=== PATIENT | male | born 1975 | race Asian ===

== ENCOUNTER 2017-03-05 13:02 | Emergency (ER) | payer MEDICAID, OTHER ==
[~2017-03-05] VITALS: Ht 180.3 cm; Wt 100.0 kg
[~2017-03-05 13:02] MED LIST: BENZ1TAB10 PO; HALOD100I IM
[2017-03-05 13:32] LABS: BASOPHILS # (AUTO) 0.11 K/uL (0.00-0.20); EOSINOPHILS # (AUTO) 0.34 K/uL (0.00-0.70); HEMATOCRIT 48.6 % (41-53); HEMOGLOBIN 16.2 g/dL (13.5-17.5); LYMPHOCYTES # (AUTO) 2.8 K/uL (1.0-4.8); LYMPHOCYTES % (AUTO) 25.6 % (22.0-44.0); MEAN CORPUSCULAR HGB CONC 33.4 G/dL (31.0-37.0); MEAN CORPUSCULAR VOLUME 93 fL (80-100); MONOCYTES # (AUTO) 0.6 K/uL (0.1-1.0); MONOCYTES % (AUTO) 5.5 % (2.0-9.0); NEUTROPHILS # (AUTO) 7.2 K/uL (1.8-7.7); NEUTROPHILS % (AUTO) 64.8 % (40.0-70.0); PLATELET COUNT (AUTO) 426 K/uL (150-450); RED BLOOD CELL COUNT(AUTO) 5.23 MIL/uL (4.50-5.90); RED CELL DISTRIBUTION WIDTH 12.9 % (11.5-14.5); WHITE BLOOD COUNT (AUTO) 11.1 K/uL (4.5-11.0)
[2017-03-05 13:52] LABS: ANION GAP 9 mmol/L (8-16); CALCIUM, TOTAL 8.6 mg/dL (8.8-10.5); CARBON DIOXIDE 26 mmol/L (22-29); CHLORIDE 106 mmol/L (98-107); CREATININE 1.09 mg/dL (0.60-1.30); GLOMERULAR FILTR. RATE CALC > 60 mL/min (>60); SODIUM SERUM 141 mmol/L (136-145); UREA NITROGEN, BLOOD 11 mg/dL (7-18)
[2017-03-05 13:54] LABS: B-TYPE NATRIURETIC PEPTIDE < 5 pg/mL (0-100)
[2017-03-05 13:56] LABS: ALANINE AMINOTRANSFERASE 18 U/L (12-78); ALBUMIN 3.7 g/dL (3.4-5.0); ASPARTATE AMINOTRANSFERASE 12 U/L (15-37); BILIRUBIN,TOTAL 0.3 mg/dL (0.1-1.0); TOTAL PROTEIN, SERUM 7.5 g/dL (6.4-8.2)
[2017-03-05] MEDS ORDERED: ALBUTEROL SULFATE HFA 90 MCG/PUFF 8 GM INHALER IH ONE (15:15)
[2017-03-05 16:03] VITALS: BP 127/61
== END 2017-03-05 16:03 | disposition home or self-care (01) ==
LOC: EMS 13:03
DX: J45.901 Unspecified asthma with (acute) exacerbation (principal); F17.210 Nicotine dependence, cigarettes, uncomplicated
CPT/HCPCS: 93005; 94640; 99285; 99406; J3535

== ENCOUNTER 2018-01-12 12:34 | Inpatient (IN) | payer MEDICAID, OTHER ==
[~2018-01-12] VITALS: Ht 182.9 cm; Wt 98.4 kg
[2018-01-12 13:08] LABS: AMPHET/METH SCREEN,URINE NEGATIVE (NEGATIVE); BARBITURATE SCREEN, URINE NEGATIVE (NEGATIVE); BENZODIAZEPINES SCREEN,URINE NEGATIVE (NEGATIVE); CANNABINOID SCREEN,URINE NEGATIVE (NEGATIVE); COCAINE SCREEN,URINE NEGATIVE (NEGATIVE); METHADONE SCREEN, URINE NEGATIVE (NEGATIVE); OPIATE SCREEN,URINE NEGATIVE (NEGATIVE); PHENCYCLIDINE SCREEN,URINE NEGATIVE (NEGATIVE)
[2018-01-12 13:10] LABS: BASOPHILS % (AUTO) 1.2 % (0.0-2.0); EOSINOPHILS % (AUTO) 3.8 % (1.0-6.0); HEMATOCRIT 41.2 % (41-53); HEMOGLOBIN 14.2 g/dL (13.5-17.5); LYMPHOCYTES # (AUTO) 3.2 K/uL (1.0-4.8); LYMPHOCYTES % (AUTO) 31.9 % (22.0-44.0); MEAN CORPUSCULAR HEMOGLOBIN 30.9 pg (26.0-34.0); MEAN CORPUSCULAR HGB CONC 34.3 G/dL (31.0-37.0); MEAN CORPUSCULAR VOLUME 90 fL (80-100); MONOCYTES # (AUTO) 0.9 K/uL (0.1-1.0); MONOCYTES % (AUTO) 9.4 % (2.0-9.0); NEUTROPHILS # (AUTO) 5.4 K/uL (1.8-7.7); NEUTROPHILS % (AUTO) 53.7 % (40.0-70.0); PLATELET COUNT (AUTO) 459 K/uL (150-450); RED BLOOD CELL COUNT(AUTO) 4.59 MIL/uL (4.50-5.90)
[2018-01-12 13:21] LABS: ANION GAP 10 mmol/L (8-16); CALCIUM, TOTAL 8.1 mg/dL (8.8-10.5); CARBON DIOXIDE 25 mmol/L (22-29); CHLORIDE 105 mmol/L (98-107); CREATININE 1.03 mg/dL (0.60-1.30); GLOMERULAR FILTR. RATE CALC > 60 mL/min (>60); GLUCOSE,RANDOM 119 mg/dL (70-110); POTASSIUM 3.3 mmol/L (3.5-5.1); SODIUM SERUM 140 mmol/L (136-145); UREA NITROGEN, BLOOD 7 mg/dL (7-18)
[2018-01-12 13:26] LABS: ALANINE AMINOTRANSFERASE 24 U/L (12-78); ALBUMIN 3.3 g/dL (3.4-5.0); ALKALINE PHOSPHATASE 90 U/L (46-116); ASPARTATE AMINOTRANSFERASE 24 U/L (15-37); BILIRUBIN,TOTAL 0.3 mg/dL (0.1-1.0); TOTAL PROTEIN, SERUM 6.8 g/dL (6.4-8.2)
[2018-01-12] MEDS ORDERED: DiphenhydrAMINE HCL 50 MG/ML VIAL IM ONE (15:45)
[2018-01-12] MEDS ORDERED: HALOPERIDOL LACTATE 5 MG/ML VIAL IM ONE (15:45)
[2018-01-12] MEDS ORDERED: LORazepam 2 MG/ML VIAL IM ONE (15:45)
[2018-01-12] MEDS ORDERED: HALOPERIDOL 5 MG TABLET PO PRN (16:15)
[2018-01-12] MEDS ORDERED: ZOLPIDEM TARTRATE 10 MG TABLET PO PRN (16:15)
[2018-01-12] MEDS ORDERED: LORazepam 2 MG TABLET PO PRN (16:15)
[2018-01-12 21:41] VITALS: BP 123/83
[2018-01-12] MEDS ORDERED: PNEUMOCOCCAL VACCINE POLYVALENT 0.5 ML VIAL [PPSV23] IM ONE (21:45)
[2018-01-12] MEDS ORDERED: POTASSIUM CHLORIDE 20 MEQ ER TABLET PO ONE (22:15)
[2018-01-12] MEDS ORDERED: BENZOCAINE/MENTHOL LOZENGE MM PRN (22:30)
[2018-01-12] MEDS ORDERED: PETROLATUM,WHITE 71 GM JELLY TP PRN (22:30)
[2018-01-12] MEDS ORDERED: ALBUTEROL SULFATE HFA 90 MCG/PUFF 8 GM INHALER IH PRN (22:30)
[2018-01-12] MEDS ORDERED: BACITRACIN 28.4 GM OINTMENT TP PRN (22:30)
[2018-01-12] MEDS ORDERED: LOPERAMIDE HCL 2 MG CAPSULE PO PRN (22:30)
[2018-01-12] MEDS ORDERED: MAG HYDROX/AL HYDROX/SIMETH ES 30 ML SUSPENSION UDCUP PO PRN (22:30)
[2018-01-12] MEDS ORDERED: ONDANSETRON HCL 4 MG TABLET PO PRN (22:30)
[2018-01-12] MEDS ORDERED: MAGNESIUM HYDROXIDE SUSPENSION 30 ML UDCUP PO PRN (22:30)
[2018-01-12] MEDS ORDERED: CloNIDine HCL 0.1 MG TABLET PO PRN (22:30)
[2018-01-12] MEDS ORDERED: IBUPROFEN 600 MG TABLET PO PRN (22:30)
[2018-01-12] MEDS ORDERED: ACETAMINOPHEN 325 MG TABLET PO PRN (22:30)
[2018-01-13] MEDS ORDERED: OMEPRAZOLE 20 MG CAPSULE PO SCH (09:00)
[2018-01-13] MEDS ORDERED: DOCUSATE SODIUM 100 MG CAPSULE PO SCH (09:00)
[2018-01-13] MEDS ORDERED: HALOPERIDOL DECANOATE 100 MG/ML VIAL IM ONE (10:45)
[2018-01-13] MEDS ORDERED: DOCUSATE SODIUM 100 MG CAPSULE PO PRN (20:30)
[2018-01-13] MEDS ORDERED: OMEPRAZOLE 20 MG CAPSULE PO PRN (20:30)
[2018-01-13] MEDS: HALOPERIDOL 10 MG TABLET PO SCH (20:48)
[2018-01-14] MEDS: ASPIRIN 81 MG EC TABLET PO SCH (06:46)
[2018-01-14] MEDS: HALOPERIDOL 10 MG TABLET PO SCH ×2 (08:41→20:31)
[2018-01-14] MEDS: NICOTINE 21 MG/24 HOUR PATCH TD SCH (08:42)
[2018-01-14] MEDS ORDERED: POTASSIUM CHLORIDE 20 MEQ ER TABLET PO ONE (09:00)
[2018-01-15] MEDS: ASPIRIN 81 MG EC TABLET PO SCH (06:59)
[2018-01-15] MEDS: HALOPERIDOL 10 MG TABLET PO SCH ×2 (08:35→20:39)
[2018-01-15] MEDS: NICOTINE 21 MG/24 HOUR PATCH TD SCH (08:35)
[2018-01-16] MEDS: ASPIRIN 81 MG EC TABLET PO SCH (07:00)
[2018-01-16] MEDS: HALOPERIDOL 10 MG TABLET PO SCH ×2 (09:00→21:00)
[2018-01-16] MEDS: NICOTINE 21 MG/24 HOUR PATCH TD SCH (09:00)
[2018-01-17 01:28] VITALS: BP 135/78
[2018-01-17] MEDS: ASPIRIN 81 MG EC TABLET PO SCH (06:54)
[2018-01-17] MEDS: NICOTINE 21 MG/24 HOUR PATCH TD SCH (08:26)
[2018-01-17] MEDS: HALOPERIDOL 10 MG TABLET PO SCH ×2 (08:26→20:17)
[2018-01-18] MEDS: ASPIRIN 81 MG EC TABLET PO SCH (07:00)
[2018-01-18] MEDS: HALOPERIDOL 10 MG TABLET PO SCH (09:00)
[2018-01-18] MEDS: NICOTINE 21 MG/24 HOUR PATCH TD SCH (09:00)
[2018-01-18] MEDS ORDERED: HALOPERIDOL LACTATE 5 MG/ML VIAL IM PRN (14:45)
[2018-01-18] MEDS: HALOPERIDOL LACTATE 10 MG/5 ML SOLUTION UDCUP PO SCH (20:51)
[2018-01-19] MEDS: ASPIRIN 81 MG EC TABLET PO SCH (07:00)
[2018-01-19] MEDS: NICOTINE 21 MG/24 HOUR PATCH TD SCH (09:00)
[2018-01-19] MEDS: HALOPERIDOL LACTATE 10 MG/5 ML SOLUTION UDCUP PO SCH (20:46)
[2018-01-20] MEDS: ASPIRIN 81 MG EC TABLET PO SCH (06:52)
[2018-01-20] MEDS: NICOTINE 21 MG/24 HOUR PATCH TD SCH (08:24)
[2018-01-20] MEDS: HALOPERIDOL LACTATE 10 MG/5 ML SOLUTION UDCUP PO SCH (20:02)
[2018-01-21] MEDS: ASPIRIN 81 MG EC TABLET PO SCH (06:18)
[2018-01-21] MEDS: NICOTINE 21 MG/24 HOUR PATCH TD SCH (08:59)
[2018-01-21] MEDS: HALOPERIDOL LACTATE 10 MG/5 ML SOLUTION UDCUP PO SCH (20:32)
[2018-01-22] MEDS: ASPIRIN 81 MG EC TABLET PO SCH (06:22)
[2018-01-22] MEDS: NICOTINE 21 MG/24 HOUR PATCH TD SCH (08:30)
[2018-01-22] MEDS: HALOPERIDOL LACTATE 10 MG/5 ML SOLUTION UDCUP PO SCH (20:27)
[2018-01-23] MEDS: ASPIRIN 81 MG EC TABLET PO SCH (06:58)
[2018-01-23] MEDS: NICOTINE 21 MG/24 HOUR PATCH TD SCH (08:24)
[2018-01-23] MEDS ORDERED: HALO10 PO (14:09)
[2018-01-23] MEDS ORDERED: ASPI-1146 PO (14:11)
[2018-01-23] MEDS ORDERED: HALOPERIDOL LACTATE 10 MG/5 ML SOLUTION UDCUP PO SCH (21:00)
== END 2018-01-23 14:55 | disposition home or self-care (01) | DRG 750 ==
LOC: EMS 12:35 → B3A 18:58
PROVIDERS: ADMIT Psychiatry & Neurology Psychiatry; ATTEND Psychiatry & Neurology Psychiatry
DX: F20.0 Paranoid schizophrenia (principal); E83.51 Hypocalcemia; E88.09 Other disorders of plasma-protein metabolism, not elsewhere classified; F17.200 Nicotine dependence, unspecified, uncomplicated; J45.909 Unspecified asthma, uncomplicated; E87.6 Hypokalemia; Z91.19 Patient's noncompliance with other medical treatment and regimen; F15.90 Other stimulant use, unspecified, uncomplicated; R73.9 Hyperglycemia, unspecified; Z79.899 Other long term (current) drug therapy; Z28.21 Immunization not carried out because of patient refusal; Z56.0 Unemployment, unspecified
CPT/HCPCS: 90686; 90732; 96372; G0480; J1630; J1631; J2060

== ENCOUNTER 2020-12-16 20:13 | Inpatient (IN) | payer MEDICAID ==
[~2020-12-16] VITALS: Ht 182.9 cm; Wt 77.2 kg
[~2020-12-16 20:13] MED LIST changes: +ASPI-1146 PO; -BENZ1TAB10 PO; +HALO10 PO; -HALOD100I IM
[2020-12-16 21:57] LABS: EOSINOPHILS % (AUTO) 0.8 % (1.0-6.0); HEMATOCRIT 36.6 % (41-53); HEMOGLOBIN 12.2 g/dL (13.5-17.5); LYMPHOCYTES # (AUTO) 1.9 K/uL (1.0-4.8); LYMPHOCYTES % (AUTO) 29.4 % (22.0-44.0); MEAN CORPUSCULAR HGB CONC 33.3 G/dL (31.0-37.0); MEAN CORPUSCULAR VOLUME 93 fL (80-100); MONOCYTES # (AUTO) 0.6 K/uL (0.1-1.0); MONOCYTES % (AUTO) 9.6 % (2.0-9.0); NEUTROPHILS # (AUTO) 3.8 K/uL (1.8-7.7); NEUTROPHILS % (AUTO) 59.2 % (40.0-70.0); PLATELET COUNT (AUTO) 552 K/uL (150-450); RED BLOOD CELL COUNT(AUTO) 3.94 MIL/uL (4.50-5.90); RED CELL DISTRIBUTION WIDTH 13.9 % (11.5-14.5)
[2020-12-16 22:07] LABS: ANION GAP 11 mmol/L (8-16); CALCIUM, TOTAL 8.8 mg/dL (8.8-10.5); CARBON DIOXIDE 24 mmol/L (22-29); CHLORIDE 106 mmol/L (98-107); GLOMERULAR FILTR. RATE CALC > 60 mL/min (>60); GLUCOSE,RANDOM 87 mg/dL (70-110); POTASSIUM 3.8 mmol/L (3.5-5.1); SODIUM SERUM 141 mmol/L (136-145); UREA NITROGEN, BLOOD 20 mg/dL (7-18)
[2020-12-16 22:13] LABS: ALANINE AMINOTRANSFERASE 30 U/L (12-78); ALBUMIN 3.8 g/dL (3.4-5.0); ALKALINE PHOSPHATASE 90 U/L (46-116); ASPARTATE AMINOTRANSFERASE 38 U/L (15-37); BILIRUBIN,TOTAL 0.8 mg/dL (0.1-1.0); TOTAL PROTEIN, SERUM 7.4 g/dL (6.4-8.2)
[2020-12-16 23:40] LABS: COVID AG,FIA SOURCE NASOPHARYNGEAL
[2020-12-17] MEDS ORDERED: ZOLPIDEM TARTRATE 10 MG TABLET PO PRN (00:30)
[2020-12-17] MEDS ORDERED: INFLUENZA VIRUS VACCINE QVS 2021-22 (6MO+)/PF 60 MCG/0.5 ML SYRINGE IM. ONE (02:45)
[2020-12-17 08:22] VITALS: BP 127/85
[2020-12-17] MEDS: LORazepam 2 MG TABLET PO PRN ×2 (09:29→20:05)
[2020-12-17] MEDS: HALOPERIDOL 5 MG TABLET PO PRN ×2 (09:29→20:05)
[2020-12-17 11:20] LABS: APPEARANCE,URINE CLEAR (CLEAR); GLUCOSE, URINE (UA) NEGATIVE (NEGATIVE); KETONES,URINE TRACE mg/dL (NEGATIVE); LEUKOCYTE ESTERASE ,URINE NEGATIVE (NEGATIVE); NITRATE,URINE NEGATIVE (NEGATIVE); OCCULT BLOOD,URINE NEGATIVE (NEGATIVE); PH,URINE 5.5 (5.0-8.0); PROTEIN,URINE NEGATIVE (NEGATIVE); UROBILINOGEN,URINE 0.2 mg/dL (<=1.0)
[2020-12-17 11:25] LABS: AMPHET/METH SCREEN,URINE NEGATIVE (NEGATIVE); BARBITURATE SCREEN, URINE NEGATIVE (NEGATIVE); BENZODIAZEPINES SCREEN,URINE NEGATIVE (NEGATIVE); CANNABINOID SCREEN,URINE NEGATIVE (NEGATIVE); COCAINE SCREEN,URINE NEGATIVE (NEGATIVE); METHADONE SCREEN, URINE NEGATIVE (NEGATIVE); OPIATE SCREEN,URINE NEGATIVE (NEGATIVE)
[2020-12-17 11:26] LABS: PHENCYCLIDINE SCREEN,URINE NEGATIVE (NEGATIVE)
[2020-12-17 11:59] LABS: BILIRUBIN,URINE PRELIM. POSITIVE (NEGATIVE)
[2020-12-17] MEDS ORDERED: OLAN10 PO (13:38)
[2020-12-17] MEDS ORDERED: ASPI-1444 PO (13:43)
[2020-12-17] MEDS ORDERED: MAG HYDROX/AL HYDROX/SIMETH ES 30 ML SUSPENSION UDCUP PO PRN (14:30)
[2020-12-17] MEDS ORDERED: NICOTINE 14 MG/24 HOUR PATCH TD PRN (14:30)
[2020-12-17] MEDS ORDERED: GuaiFENesin/D-METHORPHAN [SUGAR-FREE] 200-20MG/10 ML SYRUP UDCUP PO PRN (14:30)
[2020-12-17] MEDS ORDERED: DOCUSATE SODIUM 100 MG CAPSULE PO PRN (14:30)
[2020-12-17] MEDS ORDERED: ACETAMINOPHEN 325 MG TABLET PO PRN (14:30)
[2020-12-17] MEDS ORDERED: ONDANSETRON HCL 4 MG TABLET PO PRN (14:30)
[2020-12-17] MEDS ORDERED: LOPERAMIDE HCL 2 MG CAPSULE PO PRN (14:30)
[2020-12-17] MEDS ORDERED: ALBUTEROL SULFATE HFA 90 MCG/PUFF 8 GM INHALER IH PRN (14:30)
[2020-12-17] MEDS ORDERED: IBUPROFEN 400 MG TABLET PO PRN (14:30)
[2020-12-17] MEDS ORDERED: CloNIDine HCL 0.1 MG TABLET PO PRN (14:30)
[2020-12-17] MEDS ORDERED: MAGNESIUM HYDROXIDE SUSPENSION 30 ML UDCUP PO PRN (14:30)
[2020-12-17] MEDS ORDERED: PETROLATUM,WHITE 28 GM JELLY TP PRN (14:30)
[2020-12-17 16:00] VITALS: BP 110/72
[2020-12-17] MEDS: OLANZapine 10 MG TABLET PO SCH (20:05)
[2020-12-18 02:03] LABS: CHOL/HDL RATIO 2.9 (4.2-7.3); CHOLESTEROL 172 mg/dL (131-200); HDL CHOLESTEROL 60 mg/dL (40-60); LDL CHOL (CALC.) 107 mg/dL (0-130); THYROID STIMULATING HORMONE 0.65 uIU/mL (0.36-3.74); TRIGLYCERIDES 27 mg/dL (15-150)
[2020-12-18] MEDS: ASPIRIN 81 MG DR TABLET PO SCH ×2 (08:35→09:00)
[2020-12-18] MEDS: HALOPERIDOL 5 MG TABLET PO PRN ×2 (08:35→20:41)
[2020-12-18] MEDS: OLANZapine 10 MG TABLET PO SCH ×3 (08:35→20:40)
[2020-12-18] MEDS: LORazepam 2 MG TABLET PO PRN ×2 (08:35→20:40)
[2020-12-18 08:47] VITALS: BP 116/68
[2020-12-18 16:32] VITALS: BP 131/78
[2020-12-19] MEDS: ASPIRIN 81 MG DR TABLET PO SCH (07:29)
[2020-12-19] MEDS: OLANZapine 10 MG TABLET PO SCH ×2 (07:30→20:52)
[2020-12-19 09:09] VITALS: BP 128/87
[2020-12-19 16:02] VITALS: BP 124/86
[2020-12-20] MEDS: ASPIRIN 81 MG DR TABLET PO SCH (08:05)
[2020-12-20] MEDS: OLANZapine 10 MG TABLET PO SCH ×2 (08:05→20:21)
[2020-12-20 08:21] VITALS: BP 123/80
[2020-12-20] MEDS: LORazepam 2 MG TABLET PO PRN ×2 (10:54→16:25)
[2020-12-20 16:24] VITALS: BP 130/87
[2020-12-20] MEDS: HALOPERIDOL 5 MG TABLET PO PRN (16:25)
[2020-12-21 08:14] VITALS: BP 131/70
[2020-12-21] MEDS: LORazepam 2 MG TABLET PO PRN (09:13)
[2020-12-21] MEDS: OLANZapine 10 MG TABLET PO SCH ×2 (09:13→20:57)
[2020-12-21] MEDS: HALOPERIDOL 5 MG TABLET PO PRN (09:13)
[2020-12-21] MEDS: ASPIRIN 81 MG DR TABLET PO SCH (09:13)
[2020-12-22] MEDS: OLANZapine 10 MG TABLET PO SCH ×2 (08:01→21:19)
[2020-12-22] MEDS: LORazepam 2 MG TABLET PO PRN ×3 (08:01→22:52)
[2020-12-22] MEDS: HALOPERIDOL 5 MG TABLET PO PRN ×3 (08:01→22:52)
[2020-12-22] MEDS: ASPIRIN 81 MG DR TABLET PO SCH (08:01)
[2020-12-22 08:17] VITALS: BP 120/68
[2020-12-23] MEDS: OLANZapine 10 MG TABLET PO SCH (08:50)
[2020-12-23] MEDS: LORazepam 2 MG TABLET PO PRN (08:50)
[2020-12-23] MEDS: ASPIRIN 81 MG DR TABLET PO SCH (08:50)
[2020-12-23] MEDS: HALOPERIDOL 5 MG TABLET PO PRN (08:50)
[2020-12-23 16:21] VITALS: BP 131/82
[2020-12-23] MEDS: OLANZapine 7.5 MG TABLET PO SCH (21:00)
[2020-12-24 08:00] VITALS: BP 134/85
[2020-12-24] MEDS: OLANZapine 7.5 MG TABLET PO SCH ×2 (08:08→20:05)
[2020-12-24] MEDS: ASPIRIN 81 MG DR TABLET PO SCH (09:00)
[2020-12-24 16:33] VITALS: BP 119/79
[2020-12-24] MEDS: HALOPERIDOL 5 MG TABLET PO PRN (17:54)
[2020-12-25 08:25] VITALS: BP 125/70
[2020-12-25] MEDS: ASPIRIN 81 MG DR TABLET PO SCH ×2 (08:30→08:32)
[2020-12-25] MEDS: OLANZapine 7.5 MG TABLET PO SCH ×3 (08:30→20:18)
[2020-12-25 16:15] VITALS: BP 118/79
[2020-12-25] MEDS: HALOPERIDOL 5 MG TABLET PO PRN (16:21)
[2020-12-25] MEDS: LORazepam 2 MG TABLET PO PRN (16:21)
[2020-12-26] MEDS: HALOPERIDOL 5 MG TABLET PO PRN ×2 (07:48→19:49)
[2020-12-26] MEDS: LORazepam 2 MG TABLET PO PRN ×2 (07:48→19:49)
[2020-12-26 08:16] VITALS: BP 111/71
[2020-12-26] MEDS: ASPIRIN 81 MG DR TABLET PO SCH (08:48)
[2020-12-26] MEDS: OLANZapine 7.5 MG TABLET PO SCH ×2 (08:49→21:00)
[2020-12-27 08:13] VITALS: BP 114/68
[2020-12-27] MEDS: ASPIRIN 81 MG DR TABLET PO SCH (09:00)
[2020-12-27] MEDS: OLANZapine 7.5 MG TABLET PO SCH ×2 (09:00→20:11)
[2020-12-28 08:08] VITALS: BP 120/83
[2020-12-28] MEDS: ASPIRIN 81 MG DR TABLET PO SCH (08:36)
[2020-12-28] MEDS: OLANZapine 7.5 MG TABLET PO SCH ×2 (08:36→20:57)
[2020-12-28 17:19] VITALS: BP 130/88
[2020-12-29 08:05] VITALS: BP 122/80
[2020-12-29] MEDS: OLANZapine 7.5 MG TABLET PO SCH ×2 (08:52→21:00)
[2020-12-29] MEDS: ASPIRIN 81 MG DR TABLET PO SCH (08:52)
[2020-12-29] MEDS: VALPROIC ACID 250 MG CAPSULE PO SCH ×2 (10:00→20:50)
[2020-12-29 16:00] VITALS: BP 127/79
[2020-12-30] MEDS: VALPROIC ACID 250 MG CAPSULE PO SCH ×2 (07:53→21:00)
[2020-12-30] MEDS: OLANZapine 7.5 MG TABLET PO SCH ×2 (07:53→21:00)
[2020-12-30] MEDS: ASPIRIN 81 MG DR TABLET PO SCH (07:53)
[2020-12-30 16:23] VITALS: BP 135/85
[2020-12-31] MEDS: LORazepam 2 MG TABLET PO PRN (07:40)
[2020-12-31] MEDS: OLANZapine 7.5 MG TABLET PO SCH ×2 (07:40→20:27)
[2020-12-31] MEDS: ASPIRIN 81 MG DR TABLET PO SCH (09:00)
[2020-12-31] MEDS: VALPROIC ACID 250 MG CAPSULE PO SCH ×2 (09:00→20:27)
[2020-12-31 16:04] VITALS: BP 123/76
[2021-01-01] MEDS: ASPIRIN 81 MG DR TABLET PO SCH (07:47)
[2021-01-01] MEDS: VALPROIC ACID 250 MG CAPSULE PO SCH ×2 (07:47→21:00)
[2021-01-01] MEDS: OLANZapine 7.5 MG TABLET PO SCH ×2 (07:48→21:00)
[2021-01-01] MEDS: LORazepam 2 MG TABLET PO PRN (07:48)
[2021-01-01 16:43] VITALS: BP 142/78
[2021-01-02] MEDS: VALPROIC ACID 250 MG CAPSULE PO SCH (07:44)
[2021-01-02] MEDS: ASPIRIN 81 MG DR TABLET PO SCH (07:44)
[2021-01-02] MEDS: OLANZapine 7.5 MG TABLET PO SCH (07:45)
[2021-01-02 09:33] VITALS: BP 125/88
[2021-01-02] MEDS ORDERED: VALP250C48 PO (11:09)
== END 2021-01-02 11:30 | disposition home or self-care (01) | DRG 750 ==
LOC: EMS 20:15 → 3EC 12-17 00:26
DX: F20.0 Paranoid schizophrenia (principal); J45.901 Unspecified asthma with (acute) exacerbation; R45.851 Suicidal ideations; F10.10 Alcohol abuse, uncomplicated; D64.9 Anemia, unspecified; Z20.822 Contact with and (suspected) exposure to COVID-19; F19.10 Other psychoactive substance abuse, uncomplicated; F31.9 Bipolar disorder, unspecified; I10 Essential (primary) hypertension; Z59.00 Homelessness unspecified; Z87.891 Personal history of nicotine dependence
CPT/HCPCS: 80053; 80061; 80307; 81003; 84443; 85025; 99285; G0480